=== PATIENT | male | born 1940 | race Caucasian/White ===

== ENCOUNTER → 2016-08-03 | Outpatient (CLI) | payer MEDICARE ==
[~2016-08-03] MED LIST: CALCIUM PO; CHOL100018 PO; DICL50TA4 PO; FINA5TAB4 PO; FURO20TA3 PO; LISI5TAB7 PO; MISO200T4 PO; NIFE30TA13 PO; OMEG1CAP12 PO; POTA20TA89 PO; WARF5TAB7 PO
== END | disposition home or self-care (01) ==
LOC: RAD 09:05
PROVIDERS: ATTEND Internal Medicine Cardiovascular Disease
DX: I27.2 Other secondary pulmonary hypertension (principal); R06.02 Shortness of breath; R07.9 Chest pain, unspecified
CPT/HCPCS: 71020; 78582; A9540; A9558

== ENCOUNTER → 2017-01-11 | Outpatient (CLI) | payer MEDICARE ==
[~2017-01-11] MED LIST changes: +CHOL100012 PO; -CHOL100018 PO; -OMEG1CAP12 PO; +OMEG1CAP23 PO
== END | disposition home or self-care (01) ==
LOC: CFH 10:55
PROVIDERS: ATTEND Internal Medicine Cardiovascular Disease
DX: I08.3 Combined rheumatic disorders of mitral, aortic and tricuspid valves (principal); I11.0 Hypertensive heart disease with heart failure; I50.9 Heart failure, unspecified; Z95.0 Presence of cardiac pacemaker
CPT/HCPCS: 93306

== ENCOUNTER → 2017-10-09 | Outpatient (CLI) | payer MEDICARE ==
[~2017-10-09] MED LIST changes: +WARF-36 PO; -WARF5TAB7 PO
== END | disposition home or self-care (01) ==
LOC: CVU 14:29
PROVIDERS: ATTEND Internal Medicine Cardiovascular Disease
DX: Z01.818 Encounter for other preprocedural examination (principal); I08.1 Rheumatic disorders of both mitral and tricuspid valves; I27.20 Pulmonary hypertension, unspecified; I10 Essential (primary) hypertension; I48.91 Unspecified atrial fibrillation; Z95.0 Presence of cardiac pacemaker
CPT/HCPCS: 93306

== ENCOUNTER 2019-04-21 08:35 | Outpatient (CLI) | payer MEDICARE | END 2019-04-21 23:59 | disposition home or self-care (01) | LOC: CFH 08:35 | PROVIDERS: ATTEND Internal Medicine Cardiovascular Disease | DX: I08.3 Combined rheumatic disorders of mitral, aortic and tricuspid valves (principal); I50.9 Heart failure, unspecified; Z96.89 Presence of other specified functional implants; Z86.718 Personal history of other venous thrombosis and embolism | CPT/HCPCS: 93306 ==

== ENCOUNTER → 2020-06-25 | Outpatient (CLI) | payer MEDICARE ==
[~2020-06-25] MED LIST changes: +AMOX1TAB12 PO; +CIPR500T87 PO; +METR500T PO; +MISO200T15 PO; -MISO200T4 PO; +RIOC2.5T PO
== END | disposition home or self-care (01) ==
LOC: STAR 10:56
PROVIDERS: ATTEND Anesthesiology
DX: Z20.822 Contact with and (suspected) exposure to COVID-19 (principal)
CPT/HCPCS: 87635

== ENCOUNTER 2020-06-30 09:07 | Observation (INO) | payer MEDICARE ==
[~2020-06-30] VITALS: Ht 193 cm; Wt 94.7 kg
[2020-06-30] MEDS ORDERED: POTA20TA14 PO (09:52)
[2020-06-30] MEDS ORDERED: FURO20TA3 PO (09:52)
[2020-06-30] MEDS ORDERED: ASPI81TA45 PO (09:53)
[2020-06-30] MEDS ORDERED: MULT-658 PO (09:53)
[2020-06-30] MEDS ORDERED: ATOR20TA37 PO (09:53)
[2020-06-30] MEDS ORDERED: SPIR50TA4 PO (09:53)
[2020-06-30 09:58] VITALS: BP 127/61
[2020-06-30] MEDS: SODIUM CHLORIDE 0.9% 1,000 ML IV SCH ×2 (10:00→16:07)
[2020-06-30 10:30] LABS: BASOPHILS % (AUTO) 2 % (0-1); EOSINOPHILS % (AUTO) 5 % (1-7); LYMPHOCYTES % (AUTO) 15 % (22-44); MEAN CORPUSCULAR HGB CONC 33.7 g/dL (33.2-36.2); MEAN PLATELET VOLUME 8.1 fL (7.4-10.4); MONOCYTES % (AUTO) 14 % (2-9); NEUTROPHILS % (AUTO) 65 % (42-75); PLATELET COUNT 178 x10^3/uL (130-400); RED BLOOD COUNT 3.61 x10^6/uL (4.38-5.82); RED CELL DISTRIBUTION WIDTH 17.3 % (9.4-14.8)
[2020-06-30 10:40] LABS: ANION GAP 8 mmol/L (5-15); CALCIUM 9.8 mg/dL (8.5-10.1); CHLORIDE 109 mmol/L (98-107); CREATININE 2.35 mg/dL (0.7-1.3)
[2020-06-30] MEDS ORDERED: FENTANYL PF 250 MCG/5ML ONE (10:44)
[2020-06-30] MEDS ORDERED: PROPOFOL 50 ML ONE (11:06)
[2020-06-30] MEDS ORDERED: SUCCINYLCHOLINE 20 MG/ML, 10ML ONE (11:08)
[2020-06-30] MEDS ORDERED: ROCURONIUM 10MG/ML,5ML ONE (11:08)
[2020-06-30] MEDS ORDERED: ONDANSETRON 2MG/ML, 2ML ONE (11:08)
[2020-06-30] MEDS ORDERED: EPHEDRINE 50 MG/ML, 1ML IM PRN (13:00)
[2020-06-30] MEDS ORDERED: OXYcodone 5 MG/5 ML ORAL.SOL UDC PO PRN (13:00)
[2020-06-30] MEDS ORDERED: DESMOPRESSIN 24 MCG in SODIUM CHLORIDE 0.9% 50 ML IVPB ONE (13:00)
[2020-06-30] MEDS ORDERED: MEPERIDINE/PF 25MG/0.5ML IVPush PRN (13:00)
[2020-06-30] MEDS ORDERED: morphine SULFATE 10 MG/ML, 1ML IVPush PRN (13:00)
[2020-06-30] MEDS ORDERED: PROMETHAZINE 25 MG/ML, 1ML IVPush PRN (13:00)
[2020-06-30] MEDS ORDERED: FENTANYL PF 100 MCG/2ML IV PRN (13:00)
[2020-06-30] MEDS ORDERED: EPHEDRINE 50 MG/ML, 1ML IVPush PRN (13:00)
[2020-06-30] MEDS ORDERED: DIPHENHYDRAMINE 50 MG/ML, 1ML IVPush PRN (13:00)
[2020-06-30] MEDS ORDERED: ONDANSETRON 2MG/ML, 2ML IVPush PRN (13:00)
[2020-06-30] MEDS ORDERED: hydrALAzine 20 MG/ML, 1ML IV PRN (13:00)
[2020-06-30] MEDS ORDERED: DIAZEPAM 5 MG/ML, 2ML IVPush PRN (13:00)
[2020-06-30] MEDS ORDERED: HOLD MEDICATION MC PRN (13:30)
[2020-06-30] MEDS ORDERED: ACETAMINOPHEN 325 MG TABLET PO PRN (13:30)
[2020-06-30 14:53] VITALS: BP 128/67
[2020-06-30] MEDS: FUROSEMIDE 20 MG TABLET PO SCH (16:05)
[2020-06-30] MEDS: CEFAZOLIN PMX 1GM/50ML 50 ML IVPB SCH (16:05)
[2020-06-30] MEDS ORDERED: FUROSEMIDE 20 MG TABLET PO SCH (21:00)
[2020-06-30] MEDS ORDERED: ATORVASTATIN 20 MG TABLET PO SCH (21:00)
[2020-06-30] MEDS: POTASSIUM CHLORIDE 20 MEQ TAB.ER.PRT PO SCH (21:00)
[2020-06-30] MEDS: SPIRONOLACTONE 50 MG TABLET PO SCH (21:00)
[2020-06-30 21:12] VITALS: BP 115/72
[2020-06-30] MEDS: SODIUM CHLORIDE FLUSH 10ML SYR IVF SCH (21:42)
[2020-07-01] MEDS: CEFAZOLIN PMX 1GM/50ML 50 ML IVPB SCH (00:41)
[2020-07-01] MEDS: SODIUM CHLORIDE 0.9% 1,000 ML IV SCH ×2 (01:57→08:20)
[2020-07-01 02:10] VITALS: BP 128/69
[2020-07-01 07:35] VITALS: BP 110/63
[2020-07-01] MEDS: FUROSEMIDE 20 MG TABLET PO SCH (08:19)
[2020-07-01] MEDS: SPIRONOLACTONE 50 MG TABLET PO SCH (08:20)
[2020-07-01] MEDS: POTASSIUM CHLORIDE 20 MEQ TAB.ER.PRT PO SCH (08:20)
[2020-07-01] MEDS: SODIUM CHLORIDE FLUSH 10ML SYR IVF SCH (08:20)
[2020-07-01] MEDS ORDERED: CHOLECALCIFEROL 1,000 UNIT TABLET PO SCH (09:00)
[2020-07-01] MEDS ORDERED: FINASTERIDE 5 MG TABLET PO SCH (09:00)
[2020-07-01] MEDS ORDERED: MULTIVITAMIN 1 TABLET PO SCH (09:00)
[2020-07-01] MEDS ORDERED: ASPIRIN 81 MG TABLET EC PO SCH (09:00)
== END 2020-07-01 11:00 | disposition home or self-care (01) ==
LOC: CACL 09:07 → 5SO 13:06 → CACL 13:06 → 5SO 14:42 → DCLOUNGE 07-01 10:51
PROVIDERS: ADMIT Internal Medicine Cardiovascular Disease; ATTEND Internal Medicine Cardiovascular Disease
DX: I44.2 Atrioventricular block, complete (principal); I44.7 Left bundle-branch block, unspecified; I11.0 Hypertensive heart disease with heart failure; I50.9 Heart failure, unspecified; I27.29 Other secondary pulmonary hypertension; I48.91 Unspecified atrial fibrillation; Z95.0 Presence of cardiac pacemaker; Z79.899 Other long term (current) drug therapy
CPT/HCPCS: 33214; 33225; 36005; 36415; 71045; 71046; 80048; 82330; 82803; 82947; 84132; 84295; 85014; 85025; 93451; 96365; 96366; C1769; C1779; C1887; C1892; C1900; C2621; G0378; J0330; J0690; J2405; J2704; J3010; J3490; Q9967; 33216; 33229